=== PATIENT | male | born 1980 | race Caucasian/White ===

== ENCOUNTER 2017-09-19 19:29 | Emergency (ER) | payer OTHER ==
[~2017-09-19] VITALS: Ht 175.3 cm; Wt 92.7 kg
[2017-09-19 20:20] VITALS: BP 142/86; PULSE 64; TEMP 98.2
== END 2017-09-19 20:42 | disposition home or self-care (01) ==
LOC: COL.ER 19:29
DX: L03.311 Cellulitis of abdominal wall (principal)
CPT/HCPCS: J0696